=== PATIENT | male | born 1980 | race Caucasian/White ===

== ENCOUNTER 2016-05-29 16:55 | Emergency (ER) | payer BC, OTHER ==
[~2016-05-29] VITALS: Ht 185.4 cm; Wt 96.0 kg
[~2016-05-29 16:55] MED LIST: MECL-62 PO
[2016-05-29 16:58] VITALS: BP 123/95; PULSE 105; RESP 16; TEMP 98.6; O2SAT 98
[2016-05-29 17:10] VITALS: BP 133/88; PULSE 94; RESP 18; O2SAT 98
[2016-05-29] MEDS ORDERED: METOCLOPRAMIDE HCL 10 MG/2 ML VIAL IV PUSH ONE (17:15)
[2016-05-29] MEDS ORDERED: KETOROLAC TROMETHAMINE 30 MG/ML (IVP) VIAL IV PUSH ONE (17:15)
[2016-05-29] MEDS ORDERED: SODIUM CHLORIDE 0.9% FLUSH 5 ML FLUSH IVF PRN (17:15)
[2016-05-29 17:34] VITALS: O2SAT 98
--- NOTE | 2016-05-29 17:34 | PD ---
HPI Chief Complaint: Dizziness Time Seen by Provider: 17:07 Travel History International Travel<30 days: No Contact w/Intl Traveler<30days: No Traveled to known affect area: No History of Present Illness HPI 36-year-old male with no significant past medical history, here for evaluation of dizziness, lightheadedness, forehead pressure, and "fogginess." Patient reports that the symptoms have been going on since Thursday, 6 days ago. He was seen by a physician and was started on meclizine. He reports that his dizziness has resolved. The dizziness that the patient was experiencing before felt as though the room was spinning, and was worse with movements. He reports having forehead pressure which is 3 out of 10. He denies fevers or chills. No nausea or vomiting. No paresthesias or motor deficits. No alcohol or drug use. He is a nonsmoker. No chest pain or dyspnea. PFSH Past Medical History Cancer: No Cardiovascular Problems: No Diabetes: No Endocrine: No Genitourinary: No Hepatitis: No Hiatal Hernia: No Immune Disorder: No Musculoskeletal: Yes (FRACTURED FINGER) Neurologic: No Psychiatric: No Respiratory: No Thyroid Disease: No Influenza Vaccination: No Past Surgical History Joint Replacement: No Pacemaker: No Social History Alcohol Use: No Tobacco Use: No Substance Use: No Allergies-Medications (Allergen,Severity, Reaction): Coded Allergies: No Known Allergies (Unverified , 05/29/16) Reported Meds & Prescriptions Reported Meds & Active Scripts Active Reported Meclizine (Meclizine HCl) 25 Mg Tab 25 Mg PO TID PRN Review of Systems Except as stated in HPI: all other systems reviewed are Neg Physical Exam Narrative GENERAL: Well-developed, well-nourished, comfortable, awake, alert, no acute distress. SKIN: Warm and dry. No rash. HEAD: Atraumatic. Normocephalic. EYES: Pupils equal, round, 3 mm, reactive to light. EOMI. No nystagmus. No scleral icterus. No injection or drainage. ENT: Mucous membranes pink and moist. Bilateral tympanic membrane and external auditory canals are normal. NECK: Trachea midline. No JVD. No nuchal rigidity. CARDIOVASCULAR: Regular rate and rhythm. RESPIRATORY: No accessory muscle use. Clear to auscultation. Breath sounds equal bilaterally. GASTROINTESTINAL: Abdomen soft, non-tender, nondistended. MUSCULOSKELETAL: No obvious deformities. No clubbing. No cyanosis. No edema. NEUROLOGICAL: Awake and alert. No obvious cranial nerve deficits. Motor grossly within normal limits. Normal speech. Ambulated from triage to exam room without difficulty and without assistance. No focal neurologic deficits. Normal [id number] test bilaterally. No pronator drift. PSYCHIATRIC: Appropriate mood and affect; insight and judgment normal. Data Data Last Documented VS Vital Signs Date Time Temp Pulse Resp B/P Pulse Ox O2 Delivery O2 Flow Rate FiO2 05/29/16 18:17 93 18 117/87 97 Room Air 05/29/16 16:58 98.6 Orders Complete Blood Count With Diff (05/29/16 17:14) Comprehensive Metabolic Panel (05/29/16 17:14) Urinalysis - C+S If Indicated (05/29/16 17:14) Iv Access Insert/Monitor (05/29/16 17:14) Ecg Monitoring (05/29/16 17:14) Oximetry (05/29/16 17:14) Sodium Chloride 0.9% Flush (Ns Flush) (05/29/16 17:15) Electrocardiogram (05/29/16 17:14) Ct Brain W/O Iv Contrast(Rout) (05/29/16 ) Metoclopramide Inj (Reglan Inj) (05/29/16 17:15) Ketorolac Inj (Toradol Inj) (05/29/16 17:15) Labs Laboratory Tests Test 05/29/16 05/29/16 17:30 17:41 White Blood Count 4.7 TH/MM3 Red Blood Count 4.86 MIL/MM3 Hemoglobin 14.7 GM/DL Hematocrit 42.6 % Mean Corpuscular Volume 87.6 FL Mean Corpuscular Hemoglobin 30.2 PG Mean Corpuscular Hemoglobin 34.5 % Concent Red Cell Distribution Width 12.2 % Platelet Count 155 TH/MM3 Mean Platelet Volume 7.9 FL Neutrophils (%) (Auto) 71.1 % Lymphocytes (%) (Auto) 21.6 % Monocytes (%) (Auto) 5.6 % Eosinophils (%) (Auto) 1.3 % Basophils (%) (Auto) 0.4 % Neutrophils # (Auto) 3.3 TH/MM3 Lymphocytes # (Auto) 1.0 TH/MM3 Monocytes # (Auto) 0.3 TH/MM3 Eosinophils # (Auto) 0.1 TH/MM3 Basophils # (Auto) 0.0 TH/MM3 CBC Comment DIFF FINAL Differential Comment Sodium Level 145 MEQ/L Potassium Level 3.9 MEQ/L Chloride Level 110 MEQ/L Carbon Dioxide Level 28.6 MEQ/L Anion Gap 6 MEQ/L Blood Urea Nitrogen 10 MG/DL Creatinine 1.10 MG/DL Estimat Glomerular Filtration 76 ML/MIN Rate Random Glucose 116 MG/DL Calcium Level 8.8 MG/DL Total Bilirubin 1.2 MG/DL Aspartate Amino Transf 7 U/L (AST/SGOT) Alanine Aminotransferase 17 U/L (ALT/SGPT) Alkaline Phosphatase 64 U/L Total Protein 6.7 GM/DL Albumin 4.2 GM/DL Urine Color YELLOW Urine Turbidity CLERA Urine pH 6.5 Urine Specific [place] 1.010 Urine Protein NEG mg/dL Urine Glucose (UA) NEG mg/dL Urine Ketones NEG mg/dL Urine Occult Blood NEG Urine Nitrite NEG Urine Bilirubin NEG Urine Leukocyte Esterase NEG Urine WBC 0-2 /hpf Urine Squamous Epithelial 0-5 /hpf Cells Microscopic Urinalysis Comment CULT NOT INDICATED MDM Medical Decision Making Medical Screen Exam Complete: Yes Emergency Medical Condition: Yes Interpretation(s) EKG: Sinus, rate 91, left axis deviation, normal intervals, no acute ischemic abnormality. Differential Diagnosis Vertigo, sinusitis, intracranial abnormality, metabolic abnormality, SAH/ meningitis/encephalitis unlikely Narrative Course Vital signs reviewed. CBC is unremarkable. CMP is unremarkable. UA is within normal limits. CT head: Negative noncontrast head CT. The patient was given normal saline IV, IV Toradol, IV Reglan, and reports some improvement in symptoms. He is resting comfortably. He was made aware of all findings. His symptoms sound like vertigo. Symptoms seem to have improved at home with meclizine. He has a follow-up appointment with a primary care physician this week. He was informed on when to return to the emergency department. He verbalizes understanding and agreement with plan. Diagnosis Primary Impression: Cephalgia Qualified Code: R51 - Nonintractable headache, unspecified chronicity pattern , unspecified headache type Additional Impression: Vertigo Referrals: Primary Care Physician 3 days Additional Instructions: Follow-up with your primary care physician this week. Return to the emergency department for worsening symptoms or any other concerns. Disposition: 01 DISCHARGE HOME Condition: Stable Rohan King MD May 29, 2016 17:34
[2016-05-29 17:40] LABS: AUTOMATED NEUTROPHIL # 3.3 TH/MM3 (1.8-7.7); BASOPHIL % 0.4 % (0.0-2.0); EOSINOPHIL # 0.1 TH/MM3 (0-0.4); EOSINOPHIL % 1.3 % (0.0-4.0); HEMATOCRIT 42.6 % (39.0-51.0); HEMO FLAGS DIFF FINAL; LYMPH % 21.6 % (9.0-44.0); MEAN CELL VOLUME 87.6 FL (80.0-100.0); MEAN CORPUSCULAR HEMOGLOBIN 30.2 PG (27.0-34.0); MEAN CORPUSCULAR HGB CONC 34.5 % (32.0-36.0); MONO % 5.6 % (0.0-8.0); NEUT % 71.1 % (16.0-70.0); PLATELET COUNT 155 TH/MM3 (150-450); RED BLOOD COUNT 4.86 MIL/MM3 (4.50-5.90); RED CELL DISTRIBUTION WIDTH 12.2 % (11.6-17.2); WHITE BLOOD COUNT 4.7 TH/MM3 (4.0-11.0)
[2016-05-29 17:46] LABS: CHLORIDE 110 MEQ/L (98-107); POTASSIUM 3.9 MEQ/L (3.5-5.1); SODIUM (NA) 145 MEQ/L (136-145)
[2016-05-29 17:50] LABS: ANION GAP 6 MEQ/L (5-15); BICARBONATE 28.6 MEQ/L (21.0-32.0); BLOOD UREA NITROGEN 10 MG/DL (7-18)
[2016-05-29 17:50] LABS: BLOOD, URINE NEG (NEG); GLUCOSE,URINE NEG (NEG); KETONE, URINE NEG (NEG); NITRITE,URINE NEG (NEG); PH, URINE 6.5 (5.0-8.5)
[2016-05-29 17:53] LABS: ALT (GPT) 17 U/L (12-78); AST (GOT) 7 U/L (15-37)
[2016-05-29 17:54] LABS: GLOMERULAR FILTRATION RATE 76 ML/MIN (>89)
[2016-05-29 17:55] LABS: TOTAL BILIRUBIN ADULT 1.2 MG/DL (0.2-1.0)
[2016-05-29 17:56] LABS: ALKALINE PHOSPHATASE 64 U/L (45-117)
[2016-05-29 18:06] LABS: URINE COLOR YELLOW (YELLW/STRAW)
[2016-05-29 18:07] LABS: WBC, URINE 0-2 /hpf (0-5)
[2016-05-29 18:08] LABS: COMMENT (UR) CULT NOT INDICATED; CULTURE IF INDICATED CULT NOT INDICATED; SQUAMOUS EPITHELIAL CELL URINE 0-5 /hpf (0-5)
[2016-05-29 18:17] VITALS: BP 117/87; PULSE 93; RESP 18; O2SAT 97
--- NOTE | 2016-05-29 18:19 | RADHPO ---
EXAM DATE/TIME: 05/29/2016 18:02 [facility] COMPARISON: No previous studies available for comparison. INDICATIONS : Dizziness. Frontal pressure for six days. RADIATION DOSE: 59.70 CTDIvol (mGy) MEDICAL HISTORY : None SURGICAL HISTORY : None. ENCOUNTER: Initial ACUITY: 4 - 6 days PAIN SCALE: 3/10 LOCATION: Bilateral frontal TECHNIQUE: Multiple contiguous axial images were obtained of the head. Using automated exposure control and adj ustment of the mA and/or kV according to patient size, radiation dose was kept as low as reasonably a chievable to obtain optimal diagnostic quality images. FINDINGS: CEREBRUM: The ventricles are normal for age. No evidence of midline shift, mass lesion, hemorrhage or acute in farction. No extra-axial fluid collections are seen. POSTERIOR FOSSA: The cerebellum and brainstem are intact. The 4th ventricle is midline. The cerebellopontine angle i s unremarkable. EXTRACRANIAL: The visualized portion of the orbits is intact. Visualized paranasal sinuses and mastoid air cells ar e clear. SKULL: The calvaria is intact. No evidence of skull fracture. CONCLUSION: Negative noncontrast head CT. Ti Torres MD on May 29, 2016 at 18:17 Board Certified Radiologist. This report was verified electronically.
[2016-05-30] MEDS ORDERED: VITA20004 PO (10:46)
--- NOTE | 2016-05-30 14:55 | EKG ---
Date Performed: 05/29/2016 Time Performed: 17:42:02 PTAGE: 36 years EKG: Sinus rhythm Normal ECG NO PREVIOUS TRACING DOCTOR: Emely Ruvalcaba Interpretating Date/Time 05/30/2016 14:52:38
[2016-06-09] MEDS ORDERED: IBUP200T2 PO (13:44)
[2016-06-30] MEDS ORDERED: MECL-62 PO (12:41)
[2016-08-04] MEDS ORDERED: IBUP800T23 PO (09:41)
[2016-08-04] MEDS ORDERED: MECL-62 PO (09:41)
== END 2016-05-29 18:59 | disposition home or self-care (01) ==
LOC: PHED 16:55
DX: R51 Headache (principal); R42 Dizziness and giddiness
CPT/HCPCS: 70450; 80053; 81001; 85025; 93005; 96372; 96374; 99284; J1885; J2765